=== PATIENT | male | born 1955 | race Caucasian/White ===

== ENCOUNTER 2021-07-01 13:23 | Emergency (ER) | payer BC ==
[~2021-07-01] VITALS: Ht 172.7 cm; Wt 131.0 kg
[~2021-07-01 13:23] MED LIST: HYDR-4353 PO
--- NOTE | 2021-07-01 15:10 | NUR ---
Dr Santana at triage to evaluate pt
[2021-07-01] MEDS ORDERED: iohexol 300mg/ml 100ml inj. ONE (15:55)
[2021-07-01 16:15] LABS: ALBUMIN 3.8 G/DL (3.4-5.0); ANION GAP 10 (8-16); BLOOD UREA NITROGEN 15 MG/DL (7-18); BUN/CREATININE RATIO 13.9 (5.4-32.0); CALCIUM 8.8 MG/DL (8.5-10.1); CHLORIDE 108 MMOL/L (99-107); CREATININE 1.08 MG/DL (0.60-1.10); GLUCOSE 119 MG/DL (70-104); POTASSIUM 4.5 MMOL/L (3.5-5.1); SODIUM 143 MMOL/L (135-145); TOTAL CARBON DIOXIDE 25.4 MMOL/L (24-32); eGFR 69 ML/MIN
[2021-07-01] MEDS ORDERED: ERYT1OIN6 RIGHTEYE (20:42)
[2021-07-01 21:04] VITALS: BP 187/108
[2021-07-02] MEDS ORDERED: MESSAGE TO NURSING PO NR (10:00)
== END 2021-07-01 21:06 | disposition home or self-care (01) ==
LOC: ER 13:24
DX: H11.421 Conjunctival edema, right eye (principal); E78.00 Pure hypercholesterolemia, unspecified; I10 Essential (primary) hypertension; E11.9 Type 2 diabetes mellitus without complications; Z88.5 Allergy status to narcotic agent; Z79.899 Other long term (current) drug therapy
CPT/HCPCS: 36415; 70482; 80048; 99285; Q9967

== ENCOUNTER 2021-08-14 01:07 | Emergency (ER) | payer BC ==
[~2021-08-14] VITALS: Ht 172.7 cm; Wt 118.7 kg
[2021-08-14 03:20] LABS: BASOPHILS % (AUTO) 0.1 % (0-1); EOSINOPHILS % (AUTO) 0.1 % (0-6); HEMATOCRIT 35.7 % (42.0-52.0); HEMOGLOBIN 11.9 g/dl (14.0-17.9); LYMPHOCYTES # (AUTO) 0.9 X10'3 (1.1-4.8); LYMPHOCYTES % (AUTO) 6.6 % (21-51); MEAN CORPUSCULAR HEMOGLOBIN 29.5 PG (27.0-31.0); MEAN CORPUSCULAR HGB CONC 33.3 g/dL (33.0-36.5); MEAN CORPUSCULAR VOLUME 88.6 FL (78-98); MEAN PLATELET VOLUME 7.2 FL (7.4-10.4); MONOCYTES # (AUTO) 1.2 X10'3 (0-0.9); MONOCYTES % (AUTO) 8.7 % (2-12); NEUTROPHILS # (AUTO) 11.9 X10'3 (1.8-7.7); NEUTROPHILS % (AUTO) 84.5 % (42-75); PLATELET COUNT 325 X10'3 (140-440); RED BLOOD COUNT 4.03 X10'6 (4.70-6.10); RED CELL DISTRIBUTION WIDTH 13.6 % (11.5-14.5); WHITE BLOOD COUNT 14.1 X10'3 (4.5-11.0)
[2021-08-14 03:29] LABS: ALBUMIN 2.5 G/DL (3.4-5.0); ANION GAP 12 (8-16); BLOOD UREA NITROGEN 16 MG/DL (7-18); BUN/CREATININE RATIO 12.2 (5.4-32.0); CALCIUM 9.1 MG/DL (8.5-10.1); CHLORIDE 96 MMOL/L (99-107); CREATININE 1.31 MG/DL (0.60-1.10); GLUCOSE 261 MG/DL (70-104); POTASSIUM 4.7 MMOL/L (3.5-5.1); SODIUM 131 MMOL/L (135-145); TOTAL CARBON DIOXIDE 23.5 MMOL/L (24-32); eGFR 55 ML/MIN
[2021-08-14] MEDS ORDERED: vancomycin/NS 1 GM ADD-VANTAGE 250 ML IV STA (04:00)
[2021-08-14] MEDS ORDERED: cefepime 2g/NS 100ml ADVANTAGE 100 ML IV STA (04:00)
--- NOTE | 2021-08-14 05:48 | NUR ---
CONSULTED WITH PHARMACIST REGARDING PT CONCERN REGARDING VANCOMYACIN REACTION IN THE PAST. PHARMACIST STATES NO CONCERN REGARDING REACTION OF HEARING LOSS WITH A DOSE THIS SIZE.
[2021-08-14 07:46] LABS: D-DIMER 6.57 MG/L FEU (0-0.50)
[2021-08-14 08:36] VITALS: BP 160/94
[2021-08-14] MEDS ORDERED: HYDROcodone/acetaminophen 10/325mg tab PO ONE (09:50)
[2021-08-15] MEDS ORDERED: CEPH-585 PO (19:48)
[2021-08-15] MEDS ORDERED: AMOX-580 PO (19:48)
[2021-08-15] MEDS ORDERED: LISI20TA28 PO (19:48)
[2021-08-15] MEDS ORDERED: METF-900 PO (19:48)
[2021-08-15] MEDS ORDERED: ROSU5TAB12 PO (19:48)
[2021-08-15] MEDS ORDERED: ASPI-1265 PO (19:51)
[2021-08-15] MEDS ORDERED: LOP25T PO (19:51)
[2021-08-15] MEDS ORDERED: LACT1CAP65 PO (19:52)
[2021-08-16 15:58] LABS: ATYPICAL PANCA <1:20 titer (Neg:<1:20); CYTOPLASMIC (C-ANCA) <1:20 titer (Neg:<1:20); PERINUCLEAR (P-ANCA) <1:20 titer (Neg:<1:20)
== END 2021-08-14 10:04 | disposition home or self-care (01) ==
LOC: ER 01:07
DX: I77.6 Arteritis, unspecified (principal); Z20.822 Contact with and (suspected) exposure to COVID-19; E11.9 Type 2 diabetes mellitus without complications; E78.00 Pure hypercholesterolemia, unspecified; I10 Essential (primary) hypertension; G89.29 Other chronic pain; Z72.89 Other problems related to lifestyle; Z79.2 Long term (current) use of antibiotics; Z88.5 Allergy status to narcotic agent; Z79.899 Other long term (current) drug therapy
CPT/HCPCS: 36415; 71250; 80048; 82948; 83605; 85025; 85379; 86256; 87040; 87635; 96365; 96366; 96368; 99285; C9803; J0692; J3370; 87077

== ENCOUNTER 2021-08-15 17:08 | Inpatient (IN) | payer BC ==
[~2021-08-15] VITALS: Ht 172.7 cm; Wt 134.6 kg
[2021-08-15 18:37] LABS: BASOPHILS % (AUTO) 0.2 % (0-1); EOSINOPHILS % (AUTO) 0 % (0-6); HEMATOCRIT 35.5 % (42.0-52.0); HEMOGLOBIN 11.9 g/dl (14.0-17.9); LYMPHOCYTES % (AUTO) 6.4 % (21-51); MEAN CORPUSCULAR HEMOGLOBIN 29.4 PG (27.0-31.0); MEAN CORPUSCULAR HGB CONC 33.5 g/dL (33.0-36.5); MEAN CORPUSCULAR VOLUME 87.8 FL (78-98); MEAN PLATELET VOLUME 7.5 FL (7.4-10.4); MONOCYTES # (AUTO) 1.4 X10'3 (0-0.9); MONOCYTES % (AUTO) 9.4 % (2-12); NEUTROPHILS # (AUTO) 12.6 X10'3 (1.8-7.7); PLATELET COUNT 379 X10'3 (140-440); RED BLOOD COUNT 4.04 X10'6 (4.70-6.10); RED CELL DISTRIBUTION WIDTH 13.8 % (11.5-14.5)
[2021-08-15 18:43] LABS: PARTIAL THROMBOPLASTIN TIME 33 SECONDS (22-32)
[2021-08-15 18:45] LABS: ALANINE AMINOTRANSFERASE 28 U/L (12-78); ALBUMIN 2.1 G/DL (3.4-5.0); ALBUMIN/GLOBULIN RATIO 0.4 (1.1-1.5); ALKALINE PHOSPHATASE 84 IU/L (46-116); ANION GAP 13 (8-16); ASPARTATE AMINO TRANSFERASE 32 U/L (10-37); BILIRUBIN,TOTAL 0.7 MG/DL (0.1-1.0); BLOOD UREA NITROGEN 36 MG/DL (7-18); BUN/CREATININE RATIO 25.9 (5.4-32.0); CALCIUM 8.8 MG/DL (8.5-10.1); CHLORIDE 95 MMOL/L (99-107); CREATININE 1.39 MG/DL (0.60-1.10); GLUCOSE 246 MG/DL (70-104); POTASSIUM 4.3 MMOL/L (3.5-5.1); SODIUM 128 MMOL/L (135-145); TOTAL CARBON DIOXIDE 20.5 MMOL/L (24-32); TOTAL PROTEIN 7.1 G/DL (6.4-8.2); eGFR 51 ML/MIN
[2021-08-15 18:54] LABS: MAGNESIUM 2.1 MG/DL (1.5-2.4); TROPONIN I < 0.04 NG/ML (0.0-0.05)
[2021-08-15] MEDS ORDERED: diltiazem-D5W 125mg/125ml 125 ML IV SCH (19:00)
[2021-08-15] MEDS ORDERED: diltiazem 5mg/ml 5ml inj. IV ONE (19:00)
[2021-08-15] MEDS ORDERED: diltiazem-NS 100mg/100ml 100 ML IV SCH (19:00)
[2021-08-15] MEDS ORDERED: normal saline 1000ML IV soln IVB ONE (19:05)
[2021-08-15] MEDS: diltiazem 5mg/ml 5ml inj. IV ONE ×2 (19:07→19:16)
[2021-08-15] MEDS: metoprolol tartrate 1mg/ml inj IV SCH ×4 (19:23→20:14)
[2021-08-15] MEDS ORDERED: LISI20TA28 PO (19:48)
[2021-08-15] MEDS ORDERED: ROSU5TAB12 PO (19:48)
[2021-08-15] MEDS ORDERED: CEPH-585 PO (19:48)
[2021-08-15] MEDS ORDERED: METF-900 PO (19:48)
[2021-08-15] MEDS ORDERED: AMOX-580 PO (19:48)
[2021-08-15] MEDS ORDERED: ASPI-1265 PO (19:51)
[2021-08-15] MEDS ORDERED: LOP25T PO (19:51)
[2021-08-15] MEDS ORDERED: LACT1CAP65 PO (19:52)
[2021-08-15] MEDS ORDERED: iohexol 350MG/ML 100ml bottle IV ONE (20:12)
[2021-08-15] MEDS ORDERED: amiodarone 150mg/dext, iso-os 100 ML IV ONE (20:15)
[2021-08-15] MEDS ORDERED: magnesium hydroxide 30ml (MOM) UD suspension PO PRN (21:10)
[2021-08-15] MEDS ORDERED: ondansetron/PF 4mg/2ml inj IV PRN (21:10)
[2021-08-15] MEDS ORDERED: LIDOcaine 2% 10ml TOPICAL JELLY (Urojet) TP ONE (21:10)
[2021-08-15] MEDS ORDERED: acetaminophen 325mg tablet PO PRN (21:10)
[2021-08-15] MEDS ORDERED: potassium Cl 20 mEq SR tablet PO PRN ×2 (21:10)
[2021-08-15] MEDS ORDERED: amiodarone/D5 360MG/200ML BAG 200 ML IV SCH (22:00)
[2021-08-15] MEDS: K, MAG and/or Phos replacement - Verify level? MC SCH (22:19)
[2021-08-16 01:05] LABS: BASOPHILS % (AUTO) 0.1 % (0-1); EOSINOPHILS % (AUTO) 0.1 % (0-6); HEMATOCRIT 32.6 % (42.0-52.0); HEMOGLOBIN 10.9 g/dl (14.0-17.9); LYMPHOCYTES # (AUTO) 0.8 X10'3 (1.1-4.8); LYMPHOCYTES % (AUTO) 5.2 % (21-51); MEAN CORPUSCULAR HEMOGLOBIN 29.3 PG (27.0-31.0); MEAN CORPUSCULAR HGB CONC 33.5 g/dL (33.0-36.5); MEAN CORPUSCULAR VOLUME 87.5 FL (78-98); MEAN PLATELET VOLUME 7.3 FL (7.4-10.4); MONOCYTES # (AUTO) 1.4 X10'3 (0-0.9); MONOCYTES % (AUTO) 8.9 % (2-12); NEUTROPHILS # (AUTO) 13.2 X10'3 (1.8-7.7); NEUTROPHILS % (AUTO) 85.7 % (42-75); PLATELET COUNT 379 X10'3 (140-440); RED BLOOD COUNT 3.73 X10'6 (4.70-6.10); RED CELL DISTRIBUTION WIDTH 13.9 % (11.5-14.5); WHITE BLOOD COUNT 15.4 X10'3 (4.5-11.0)
[2021-08-16] MEDS: diltiazem-NS 100mg/100ml 100 ML IV SCH ×2 (01:05→06:18)
[2021-08-16 01:20] LABS: ALBUMIN 1.9 G/DL (3.4-5.0); ANION GAP 12 (8-16); BLOOD UREA NITROGEN 36 MG/DL (7-18); BUN/CREATININE RATIO 26.7 (5.4-32.0); CALCIUM 8.5 MG/DL (8.5-10.1); CHLORIDE 97 MMOL/L (99-107); CREATININE 1.35 MG/DL (0.60-1.10); GLUCOSE 313 MG/DL (70-104); MAGNESIUM 2.1 MG/DL (1.5-2.4); PHOSPHORUS 2.9 MG/DL (2.3-4.5); POTASSIUM 4.4 MMOL/L (3.5-5.1); SODIUM 131 MMOL/L (135-145); TOTAL CARBON DIOXIDE 21.8 MMOL/L (24-32); eGFR 53 ML/MIN
[2021-08-16] MEDS: heparin, porcine 5000 units/ml vial SQ SCH ×3 (01:33→20:14)
[2021-08-16] MEDS: acetaminophen 325mg tablet PO PRN ×2 (01:39→20:26)
--- NOTE | 2021-08-16 03:44 | NUR ---
CALLED DR CALDERON RE PT HR STILL 140S-160S A FLUTTER. PER DR, CONTINUE WITH AMI AND OK TO DROP TO 0.5MG AFTER THE 6 HRS ONF 1MG. RECIEVED ORDER FOR LOPRESSOR 5MG IV ONCE ALSO RECIEVED ORDER FOR SLIDING SCALE INSULIN FOR LAST BG OF 313.
[2021-08-16] MEDS ORDERED: glucagon, human recombinant 1mg kit SUBCUT PRN (04:45)
[2021-08-16] MEDS ORDERED: dextrose 50%-water 50ml dispensing syringe IV PRN ×2 (04:45)
[2021-08-16] MEDS ORDERED: metoprolol tartrate 1mg/ml inj IV ONE (04:45)
[2021-08-16] MEDS ORDERED: MESSAGE TO PHARMACY PO ONE (04:45)
[2021-08-16] MEDS ORDERED: dextrose ORAL solution 15 GM/59 ML bottle PO PRN ×2 (04:45)
[2021-08-16] MEDS: amiodarone/D5 360MG/200ML BAG 200 ML IV SCH ×6 (04:51→22:27)
[2021-08-16 04:59] LABS: HEMOGLOBIN A1C 7.3 % (4.5-6.2)
--- NOTE | 2021-08-16 06:50 | NUR ---
PATIENT'S HR 86 SINUS RHYTHM.PATIENT ON AMNIODARONE 0.5MG/MIN AND CARDIZEM 20MG/HOUR.
[2021-08-16] MEDS: K, MAG and/or Phos replacement - Verify level? MC SCH (08:00)
--- NOTE | 2021-08-16 08:38 | NUR ---
maxipime and vancomycin bit available at this time,.
--- NOTE | 2021-08-16 08:44 | NUR ---
Dr. Shannon at bedside, ordered as follows: start on Renal diet, lasix 40mg piv stat, stop diltiazem drip, down grade patient to pcu, venous doppler to BLE ro dvt. Order noted and carried out.
--- NOTE | 2021-08-16 08:44 | NUR ---
per Dr. Shannon keep amniodarone drip rate as is.
[2021-08-16] MEDS ORDERED: furosemide 10 MG/1 ML 10ml inj IV STA (08:46)
--- NOTE | 2021-08-16 09:00 | NUR ---
Shannon a request to dietary for a renal diet breakfast tray 09 Signed: 08/16/21 at 0900 by Kristine MARIE
--- NOTE | 2021-08-16 09:11 | NUR ---
annmarie gimenez dc'lucita at this time, ordered to re start if needed.
[2021-08-16] MEDS: cefepime 1GM/NS ADD-VANTAGE 100 ML IV SCH ×2 (09:18→16:32)
--- NOTE | 2021-08-16 09:24 | NUR ---
PAGED VASCULAR FOR ULTRASOUND TO BLE.
[2021-08-16 09:46] LABS: RHEUM FACTOR QUAL REFLEX TITER NEGATIVE (Neg)
--- NOTE | 2021-08-16 09:55 | NUR ---
electronic technician at bedside.
--- NOTE | 2021-08-16 10:50 | NUR ---
have assumed care of pt from Nazia CHAPA, pt has had vascular study and finished breakfast, emptied urinal of 1200ml of clear yellow urine, pt is hard of hearing, reads lips and writes to communicate, pt is GCS 15 alert and oriented x3, resp even and unlabored, on room air, skin p/w/d, sinus rhythm on monitor, no ectopy, amiodarone gtt at 0.5mg/min infusing via pump to left AC IV, IV site is patent and clear, pt has been downgraded to PCU, waiting for bed assignment
--- NOTE | 2021-08-16 10:51 | NUR ---
No change with amniodarone rate per Dr Shannon.
[2021-08-16] MEDS: insulin Lispro (HumaLOG) vial - multi-dose SQ SCH ×3 (11:03→20:10)
[2021-08-16] MEDS ORDERED: APIX5TAB3 PO (11:47)
--- NOTE | 2021-08-16 12:06 | NUR ---
FAMILY AT BEDSIDE, AWARE OF PLAN TO ADMIT TO HOSPITAL, NO BEDS AVAILABLE AT THIS TIME, GAVE PT ICE CHIPS, ROSALINO WELL NO N/V
[2021-08-16 13:06] VITALS: BP 143/72
--- NOTE | 2021-08-16 13:30 | NUR ---
FAMILY AT BEDSIDE, PT SITTING UP EATING LUNCH, CHECKED VITALS AND IV LINES, DC'D FIELD LINE, OTHER LINES INTACT
--- NOTE | 2021-08-16 16:35 | NUR ---
PT CONTINUES TO REST QUIETLY ON GURNEY, RESP EVEN AND UNLABORED, FAMILY WENT HOME, CAROL HERCULES, DAUGHTER, [phone]
--- NOTE | 2021-08-16 17:00 | NUR ---
pt to CT on monitor with RN
--- NOTE | 2021-08-16 18:31 | NUR ---
copier field service technician at bedside
--- NOTE | 2021-08-16 18:43 | NUR ---
report to Bessie CHAPA
--- NOTE | 2021-08-16 18:51 | NUR ---
Patient in room ED 9. I have received report from ZAKIYA CHAPA and had the opportunity to ask questions and assume patient care.
[2021-08-16 19:00] VITALS: BP 152/73
[2021-08-16 20:00] VITALS: BP 154/68
[2021-08-16] MEDS: prednisoLONE acetate 1% ophth susp 5ml EACHEYE SCH (20:00)
[2021-08-16] MEDS: vancomycin/NS 1 GM ADD-VANTAGE 250 ML IV SCH (20:15)
[2021-08-16] MEDS: lactobacillus rhamnosus 10,000 MMU CELLS/CAPSULE PO SCH (20:16)
[2021-08-16] MEDS: predniSONE 20 mg tablet PO SCH (20:16)
[2021-08-16 21:00] VITALS: BP 166/94
--- NOTE | 2021-08-16 21:57 | NUR ---
3018B-AMAURY WILHELM-HR INCREASED FROM 90'S TO 140'S, CONVERTED FROM SR TO AFIB AT 2130-ON DILT gtt AT 0.5. MAY WE INCREASE? EVERETT [id number] Addendum: 08/16/21 at 2225 by Everett Palma RN CORRECTION-AMIODARONE gtt, aware, ordered 180 mg cardizem PO x1 now for HR 130's-140's/afib. NIXON CHAPA
[2021-08-16 22:00] VITALS: BP 163/71
[2021-08-16] MEDS: insulin glargine (Lantus) pen - multi-dose SQ SCH (22:19)
[2021-08-16] MEDS ORDERED: diltiazem CD 180mg cap (once-daily) PO ONE (22:20)
--- NOTE | 2021-08-16 23:44 | NUR ---
3018B-AMAURY WILHELM-HR INCREASED FROM 90'S TO 140'S, CONVERTED FROM SR TO AFIB AT 2130-ON DILT gtt AT 0.5. MAY WE INCREASE? EVERETT [id number]
--- NOTE | 2021-08-16 23:45 | NUR ---
REQUESTED LASIX FOR PATIENT-EDEMA 3 +. NIXON CHAPA
[2021-08-17] VITALS (8 sets, daily range): BP systolic 145–166; BP diastolic 71–90
[2021-08-17] MEDS: heparin, porcine 5000 units/ml vial SQ SCH ×2 (00:04→08:57)
[2021-08-17] MEDS: cefepime 1GM/NS ADD-VANTAGE 100 ML IV SCH ×4 (00:25→23:47)
--- NOTE | 2021-08-17 06:35 | NUR ---
Problems reprioritized. Patient report given, questions answered & plan of care reviewed with QUIN CHAPA.
[2021-08-17] MEDS: K, MAG and/or Phos replacement - Verify level? MC SCH (08:00)
[2021-08-17] MEDS: prednisoLONE acetate 1% ophth susp 5ml EACHEYE SCH ×3 (08:00→19:26)
[2021-08-17 08:21] LABS: BASOPHILS % (AUTO) 0.1 % (0-1); EOSINOPHILS % (AUTO) 0 % (0-6); HEMATOCRIT 35.5 % (42.0-52.0); HEMOGLOBIN 11.4 g/dl (14.0-17.9); LYMPHOCYTES # (AUTO) 0.6 X10'3 (1.1-4.8); LYMPHOCYTES % (AUTO) 3.2 % (21-51); MEAN CORPUSCULAR HGB CONC 32.2 g/dL (33.0-36.5); MEAN CORPUSCULAR VOLUME 89.9 FL (78-98); MEAN PLATELET VOLUME 7.6 FL (7.4-10.4); MONOCYTES # (AUTO) 1.1 X10'3 (0-0.9); MONOCYTES % (AUTO) 6.1 % (2-12); NEUTROPHILS # (AUTO) 15.8 X10'3 (1.8-7.7); NEUTROPHILS % (AUTO) 90.6 % (42-75); PLATELET COUNT 379 X10'3 (140-440); RED BLOOD COUNT 3.94 X10'6 (4.70-6.10); RED CELL DISTRIBUTION WIDTH 14.5 % (11.5-14.5); WHITE BLOOD COUNT 17.5 X10'3 (4.5-11.0)
[2021-08-17 08:47] LABS: ALBUMIN 1.9 G/DL (3.4-5.0); ANION GAP 16 (8-16); BLOOD UREA NITROGEN 32 MG/DL (7-18); BUN/CREATININE RATIO 28.1 (5.4-32.0); CALCIUM 9.1 MG/DL (8.5-10.1); CHLORIDE 99 MMOL/L (99-107); CREATININE 1.14 MG/DL (0.60-1.10); GLUCOSE 356 MG/DL (70-104); MAGNESIUM 2.7 MG/DL (1.5-2.4); PHOSPHORUS 3.6 MG/DL (2.3-4.5); POTASSIUM 4.5 MMOL/L (3.5-5.1); SODIUM 137 MMOL/L (135-145); TOTAL CARBON DIOXIDE 21.9 MMOL/L (24-32); eGFR 65 ML/MIN
[2021-08-17] MEDS: vancomycin/NS 1 GM ADD-VANTAGE 250 ML IV SCH ×2 (08:56→19:24)
[2021-08-17] MEDS: lactobacillus rhamnosus 10,000 MMU CELLS/CAPSULE PO SCH ×2 (08:57→19:24)
[2021-08-17] MEDS: predniSONE 20 mg tablet PO SCH (08:57)
[2021-08-17] MEDS ORDERED: FLU VACC QS2021-22(6MOS UP)/PF 60 MCG/0.5 ML SYRINGE IM ONE (09:00)
[2021-08-17] MEDS: insulin Lispro (HumaLOG) vial - multi-dose SQ SCH ×3 (09:01→19:23)
[2021-08-17] MEDS ORDERED: polyvinyl alcohol ophthalmic drops 15ml bottle EACHEYE PRN (10:25)
--- NOTE | 2021-08-17 14:29 | NUR ---
DM consult: Pt with T2DM, well controlled with A1c 7.3%. Written DM education with RD contact information placed in patient's chart. Will continue to follow. Addendum: 08/17/21 at [address] Amended: Links added.
[2021-08-17] MEDS ORDERED: ondansetron 4mg rapidly disintigrating tab PO PRN (14:45)
--- NOTE | 2021-08-17 15:28 | NUR ---
regarding abdominal distention PAGER ID: [phone] MESSAGE: room 3020, Maria L Arreola, patient is going down for MRI now, patient states abdomen being large and distended is not her baseline, should we order abdominal CT as well since she'll be downstairs? thank you, Danita CHAPA [phone]
[2021-08-17] MEDS: apixaban 5mg tablet PO SCH (19:24)
[2021-08-17] MEDS ORDERED: VANCOMYCIN LEVEL IV ONE (19:30)
--- NOTE | 2021-08-17 21:42 | NUR ---
3018B AMAURY FOY-CRITICAL KHUSHBOO 21.3 CALLED FROM LAB AT 5-. VANCO BAG ALREADY COMPLETED AT THAT TIME. ANY NEW ORDERS? EVERETT [id number]. THX
[2021-08-17] MEDS: insulin glargine (Lantus) pen - multi-dose SQ SCH (21:57)
[2021-08-18 02:00] VITALS: BP 181/76
[2021-08-18] MEDS: acetaminophen 325mg tablet PO PRN ×2 (02:55→23:10)
--- NOTE | 2021-08-18 03:00 | NUR ---
PAGER ID: [phone] MESSAGE: 3016B-Siddharth Gallegos-BLOOD PRESSURE >160'S SYSTOLLICALLYLAST 24 HRS, HAS HYPERTHYROID ISSUES-DIABETIC. NO PRN FOR SBP. PLEASE CALL [phone], THX
--- NOTE | 2021-08-18 04:24 | NUR ---
PAGER ID: [phone] MESSAGE: 3013B-Siddharth Gallegos-BLOOD PRESSURE >160'S SYSTOLLICALLYLAST 24 HRS, HAS HYPERTHYROID ISSUES-DIABETIC. NO PRN FOR SBP. PLEASE CALL [phone], THX HR NOW IN 180'S SYSTOLICALLY. AWAITING RESPONSE FROMHOSPITALIST. NIXON CHAPA
[2021-08-18] MEDS ORDERED: lisinopril 10 MG tablet PO ONE (04:50)
[2021-08-18 06:00] VITALS: BP 158/62
--- NOTE | 2021-08-18 06:25 | NUR ---
Patient in room PCU 3018. I have received report from eufemia suarez and had the opportunity to ask questions and assume patient care.
--- NOTE | 2021-08-18 06:43 | NUR ---
Problems reprioritized. Patient report given, questions answered & plan of care reviewed with CESIA CHAPA.
[2021-08-18 06:49] LABS: BASOPHILS % (AUTO) 0.1 % (0-1); EOSINOPHILS % (AUTO) 0.1 % (0-6); HEMATOCRIT 33.6 % (42.0-52.0); HEMOGLOBIN 10.9 g/dl (14.0-17.9); LYMPHOCYTES # (AUTO) 1.1 X10'3 (1.1-4.8); LYMPHOCYTES % (AUTO) 6.9 % (21-51); MEAN CORPUSCULAR HEMOGLOBIN 28.9 PG (27.0-31.0); MEAN CORPUSCULAR HGB CONC 32.4 g/dL (33.0-36.5); MEAN CORPUSCULAR VOLUME 89.3 FL (78-98); MEAN PLATELET VOLUME 7.5 FL (7.4-10.4); MONOCYTES % (AUTO) 6.8 % (2-12); NEUTROPHILS # (AUTO) 13.1 X10'3 (1.8-7.7); NEUTROPHILS % (AUTO) 86.1 % (42-75); PLATELET COUNT 440 X10'3 (140-440); RED BLOOD COUNT 3.76 X10'6 (4.70-6.10); RED CELL DISTRIBUTION WIDTH 14.4 % (11.5-14.5); WHITE BLOOD COUNT 15.2 X10'3 (4.5-11.0)
[2021-08-18 07:33] LABS: ALBUMIN 1.8 G/DL (3.4-5.0); ANION GAP 12 (8-16); BLOOD UREA NITROGEN 34 MG/DL (7-18); BUN/CREATININE RATIO 30.9 (5.4-32.0); CALCIUM 8.8 MG/DL (8.5-10.1); CHLORIDE 100 MMOL/L (99-107); GLUCOSE 210 MG/DL (70-104); MAGNESIUM 2.2 MG/DL (1.5-2.4); PHOSPHORUS 3.4 MG/DL (2.3-4.5); SODIUM 137 MMOL/L (135-145); TOTAL CARBON DIOXIDE 24.9 MMOL/L (24-32); eGFR 67 ML/MIN
[2021-08-18] MEDS ORDERED: non-formulary drug (Lactobacillus Acidophilus (Probiotic) 1 EACH) PO SCH (08:00)
[2021-08-18] MEDS: predniSONE 20 mg tablet PO SCH (08:09)
[2021-08-18] MEDS: prednisoLONE acetate 1% ophth susp 5ml EACHEYE SCH ×2 (08:09→19:13)
[2021-08-18] MEDS: aspirin 81mg tab.chew PO SCH (08:09)
[2021-08-18] MEDS: cefepime 1GM/NS ADD-VANTAGE 100 ML IV SCH ×2 (08:09→16:52)
[2021-08-18] MEDS: atorvastatin 20mg tablet PO SCH (08:10)
[2021-08-18] MEDS: diltiazem CD 180mg cap (once-daily) PO SCH (08:10)
[2021-08-18] MEDS: lactobacillus rhamnosus 10,000 MMU CELLS/CAPSULE PO SCH ×2 (08:10→19:13)
[2021-08-18] MEDS: lisinopril 20mg tablet PO SCH (08:10)
[2021-08-18] MEDS: apixaban 5mg tablet PO SCH ×2 (08:10→19:13)
[2021-08-18] MEDS: K, MAG and/or Phos replacement - Verify level? MC SCH (08:20)
[2021-08-18] MEDS: vancomycin inj. 750 MG in normal saline 250ml IV soln 250 ML IV SCH ×2 (09:00→21:32)
[2021-08-18 09:23] LABS: PLATELET ESTIMATE NORMAL; POLYCHROMASIA 1+; TOTAL CELLS COUNTED 100
[2021-08-18] MEDS: insulin Lispro (HumaLOG) vial - multi-dose SQ SCH ×3 (10:10→19:12)
[2021-08-18 11:00] VITALS: BP 166/75
[2021-08-18] MEDS ORDERED: hydrALAZINE 20mg/ml inj. IV PRN (12:20)
[2021-08-18] MEDS: fluticasone nasal spray 16GM bottle NS SCH (12:30)
[2021-08-18] MEDS ORDERED: salt irrigation nasal spray 45 ML SPRAY NS PRN (12:30)
[2021-08-18] MEDS ORDERED: temazepam 15mg capsule PO PRN (12:30)
[2021-08-18 15:00] VITALS: BP 177/84
[2021-08-18 18:00] VITALS: BP 149/80
--- NOTE | 2021-08-18 18:23 | NUR ---
Problems reprioritized. Patient report given, questions answered & plan of care reviewed with EDUARD MCALLISTER.
[2021-08-18] MEDS: insulin glargine (Lantus) pen - multi-dose SQ SCH (21:22)
[2021-08-18 22:00] VITALS: BP_SYST 130; BP_SYST 161; BP_DIAS 70; BP_DIAS 80
[2021-08-19] MEDS: cefepime 1GM/NS ADD-VANTAGE 100 ML IV SCH ×3 (00:08→15:55)
[2021-08-19 02:00] VITALS: BP_SYST 138; BP_SYST 153; BP_DIAS 73; BP_DIAS 95
[2021-08-19 06:00] VITALS: BP 143/99
[2021-08-19 07:11] LABS: ALBUMIN 1.8 G/DL (3.4-5.0); ANION GAP 13 (8-16); BLOOD UREA NITROGEN 28 MG/DL (7-18); BUN/CREATININE RATIO 28.6 (5.4-32.0); CALCIUM 8.6 MG/DL (8.5-10.1); CHLORIDE 100 MMOL/L (99-107); CREATININE 0.98 MG/DL (0.60-1.10); GLUCOSE 208 MG/DL (70-104); PHOSPHORUS 3.5 MG/DL (2.3-4.5); SODIUM 136 MMOL/L (135-145); TOTAL CARBON DIOXIDE 23.5 MMOL/L (24-32); eGFR 77 ML/MIN
[2021-08-19 07:13] LABS: BASOPHILS % (AUTO) 0.2 % (0-1); EOSINOPHILS % (AUTO) 0.2 % (0-6); HEMATOCRIT 34.7 % (42.0-52.0); HEMOGLOBIN 11.4 g/dl (14.0-17.9); LYMPHOCYTES # (AUTO) 1.2 X10'3 (1.1-4.8); LYMPHOCYTES % (AUTO) 6.9 % (21-51); MEAN CORPUSCULAR HEMOGLOBIN 29.1 PG (27.0-31.0); MEAN CORPUSCULAR HGB CONC 32.8 g/dL (33.0-36.5); MEAN CORPUSCULAR VOLUME 88.9 FL (78-98); MEAN PLATELET VOLUME 7.8 FL (7.4-10.4); MONOCYTES # (AUTO) 1.2 X10'3 (0-0.9); MONOCYTES % (AUTO) 6.9 % (2-12); NEUTROPHILS % (AUTO) 85.8 % (42-75); PLATELET COUNT 520 X10'3 (140-440); RED CELL DISTRIBUTION WIDTH 14.4 % (11.5-14.5); WHITE BLOOD COUNT 17.4 X10'3 (4.5-11.0)
[2021-08-19] MEDS: predniSONE 20 mg tablet PO SCH (07:20)
[2021-08-19] MEDS: prednisoLONE acetate 1% ophth susp 5ml EACHEYE SCH ×10 (07:20→23:00)
[2021-08-19] MEDS: atorvastatin 20mg tablet PO SCH (07:21)
[2021-08-19] MEDS: acetaminophen 325mg tablet PO PRN ×2 (07:21→22:14)
[2021-08-19] MEDS: lisinopril 20mg tablet PO SCH (07:21)
[2021-08-19] MEDS: diltiazem CD 180mg cap (once-daily) PO SCH (07:21)
[2021-08-19] MEDS: lactobacillus rhamnosus 10,000 MMU CELLS/CAPSULE PO SCH ×2 (07:21→19:53)
[2021-08-19] MEDS: aspirin 81mg tab.chew PO SCH (07:21)
[2021-08-19] MEDS: apixaban 5mg tablet PO SCH ×2 (07:21→19:53)
[2021-08-19] MEDS: fluticasone nasal spray 16GM bottle NS SCH (07:22)
[2021-08-19] MEDS: K, MAG and/or Phos replacement - Verify level? MC SCH (08:00)
[2021-08-19] MEDS: insulin Lispro (HumaLOG) vial - multi-dose SQ SCH ×3 (09:15→19:57)
[2021-08-19] MEDS ORDERED: FLU VACC QS2021-22(6MOS UP)/PF 60 MCG/0.5 ML SYRINGE IM ONE (10:00)
[2021-08-19] MEDS: vancomycin inj. 750 MG in normal saline 250ml IV soln 250 ML IV SCH ×2 (10:06→21:52)
[2021-08-19 11:00] VITALS: BP 141/77
[2021-08-19 11:45] LABS: PLATELET ESTIMATE INCREASED; TOTAL CELLS COUNTED 100
[2021-08-19 11:46] LABS: POLYCHROMASIA 1+
[2021-08-19 13:11] LABS: ATYPICAL PANCA <1:20 titer (Neg:<1:20); CYTOPLASMIC (C-ANCA) <1:20 titer (Neg:<1:20); PERINUCLEAR (P-ANCA) <1:20 titer (Neg:<1:20)
[2021-08-19] MEDS ORDERED: VANCOMYCIN LEVEL IV ONE (20:30)
[2021-08-19 22:00] VITALS: BP 144/57
[2021-08-19] MEDS: insulin glargine (Lantus) pen - multi-dose SQ SCH (22:12)
[2021-08-20] MEDS: prednisoLONE acetate 1% ophth susp 5ml EACHEYE SCH ×5 (01:00→08:55)
[2021-08-20 02:00] VITALS: BP 165/85
[2021-08-20] MEDS: cefepime 1GM/NS ADD-VANTAGE 100 ML IV SCH ×2 (02:15→08:51)
[2021-08-20 06:00] VITALS: BP 143/84
--- NOTE | 2021-08-20 06:45 | NUR ---
Problems reprioritized. Patient report given, questions answered & plan of care reviewed with EDUARD Orantes.
--- NOTE | 2021-08-20 06:51 | NUR ---
Patient in room PCU 3018. I have received report from Monae CHAPA and had the opportunity to ask questions and assume patient care.
[2021-08-20 07:14] LABS: BASOPHILS # (AUTO) 0.1 X10'3 (0-0.2); BASOPHILS % (AUTO) 0.3 % (0-1); EOSINOPHILS % (AUTO) 0.1 % (0-6); HEMATOCRIT 37.7 % (42.0-52.0); LYMPHOCYTES # (AUTO) 1.3 X10'3 (1.1-4.8); LYMPHOCYTES % (AUTO) 6.3 % (21-51); MEAN CORPUSCULAR HEMOGLOBIN 28.7 PG (27.0-31.0); MEAN CORPUSCULAR HGB CONC 31.8 g/dL (33.0-36.5); MEAN CORPUSCULAR VOLUME 90.2 FL (78-98); MEAN PLATELET VOLUME 7.4 FL (7.4-10.4); MONOCYTES # (AUTO) 1.2 X10'3 (0-0.9); MONOCYTES % (AUTO) 6.1 % (2-12); NEUTROPHILS # (AUTO) 17.4 X10'3 (1.8-7.7); NEUTROPHILS % (AUTO) 87.2 % (42-75); PLATELET COUNT 481 X10'3 (140-440); RED BLOOD COUNT 4.18 X10'6 (4.70-6.10); RED CELL DISTRIBUTION WIDTH 14.3 % (11.5-14.5)
[2021-08-20 07:27] LABS: ALBUMIN 1.8 G/DL (3.4-5.0); ANION GAP 12 (8-16); BLOOD UREA NITROGEN 23 MG/DL (7-18); BUN/CREATININE RATIO 26.7 (5.4-32.0); CALCIUM 8.4 MG/DL (8.5-10.1); CHLORIDE 99 MMOL/L (99-107); CREATININE 0.86 MG/DL (0.60-1.10); GLUCOSE 186 MG/DL (70-104); MAGNESIUM 1.9 MG/DL (1.5-2.4); PHOSPHORUS 3.2 MG/DL (2.3-4.5); POTASSIUM 4.2 MMOL/L (3.5-5.1); SODIUM 136 MMOL/L (135-145); TOTAL CARBON DIOXIDE 24.6 MMOL/L (24-32); eGFR 90 ML/MIN
[2021-08-20] MEDS: K, MAG and/or Phos replacement - Verify level? MC SCH (08:00)
[2021-08-20] MEDS: aspirin 81mg tab.chew PO SCH (08:49)
[2021-08-20] MEDS: predniSONE 20 mg tablet PO SCH (08:50)
[2021-08-20] MEDS: atorvastatin 20mg tablet PO SCH (08:50)
[2021-08-20] MEDS: diltiazem CD 180mg cap (once-daily) PO SCH (08:50)
[2021-08-20 08:51] VITALS: BP_SYST 174
[2021-08-20] MEDS: lisinopril 20mg tablet PO SCH (08:51)
[2021-08-20] MEDS: apixaban 5mg tablet PO SCH (08:51)
[2021-08-20] MEDS: vancomycin inj. 750 MG in normal saline 250ml IV soln 250 ML IV SCH (08:52)
[2021-08-20] MEDS: fluticasone nasal spray 16GM bottle NS SCH (08:52)
[2021-08-20] MEDS: lactobacillus rhamnosus 10,000 MMU CELLS/CAPSULE PO SCH (08:57)
[2021-08-20] MEDS: insulin Lispro (HumaLOG) vial - multi-dose SQ SCH (09:05)
[2021-08-20 09:22] LABS: GIANT PLATELET FEW; LARGE PLATELETS FEW; PLATELET ESTIMATE INCREASED
[2021-08-20] MEDS ORDERED: prednisoLONE acetate 1% ophth susp 5ml EACHEYE SCH (11:00)
[2021-08-20] MEDS ORDERED: PREDNISOLONE EACHEYE (11:26)
[2021-08-20] MEDS ORDERED: DILT180C66 PO (11:26)
[2021-08-20] MEDS ORDERED: PRED20TA PO (11:26)
--- NOTE | 2021-08-20 12:04 | NUR ---
Initial: Pt admitted w/ chest pain and SOB per EMR. Pt able to eat moderately well, avg 68% x 9 meals on Renal/Heart Healthy/[facility] diet. D/w RN recommendation to d/c Renal and Heart Healthy if MD agreeable as pt does not have noted hx of renal issues or dyslipidemia. LBM 08/18. Will continue to monitor. Recs: 1. Continue CCHO diet, remove Renal and Heart Healthy if MD agreeable 2. Bowel care per rx 3. Weekly wts Addendum: 08/20/21 at [address] Amended: Links added.
--- NOTE | 2021-08-20 13:30 | NUR ---
Patient in stable condition at discharge. IV, Isaacs and telemetry were discontinued. Patient was taken out of unit with a wheelchair at 1310 . Patient left hospital with daughter with a personal car.
== END 2021-08-20 13:10 | disposition home health service (06) | DRG 308 ==
LOC: ER 17:09 → ED HOLD 21:16 → PCU 3S 08-16 19:05
PROVIDERS: ADMIT Internal Medicine Pulmonary Disease; ATTEND Internal Medicine Pulmonary Disease
PROC: B32T1ZZ Computerized Tomography (CT Scan) of Left Pulmonary Artery using Low Osmolar Contrast (ICD-10-PCS; 2021-08-15)
PROC: B3201ZZ Computerized Tomography (CT Scan) of Thoracic Aorta using Low Osmolar Contrast (ICD-10-PCS; 2021-08-15)
PROC: B32S1ZZ Computerized Tomography (CT Scan) of Right Pulmonary Artery using Low Osmolar Contrast (ICD-10-PCS; 2021-08-15)
PROC: 3E02340 Introduction of Influenza Vaccine into Muscle, Percutaneous Approach (ICD-10-PCS; principal; 2021-08-19)
DX: I47.1 Supraventricular tachycardia (principal); N17.0 Acute kidney failure with tubular necrosis; E87.1 Hypo-osmolality and hyponatremia; M31.30 Wegener's granulomatosis without renal involvement; I48.92 Unspecified atrial flutter; E11.9 Type 2 diabetes mellitus without complications; E78.00 Pure hypercholesterolemia, unspecified; E05.90 Thyrotoxicosis, unspecified without thyrotoxic crisis or storm; G89.29 Other chronic pain; R21 Rash and other nonspecific skin eruption; H57.89 Other specified disorders of eye and adnexa; E86.0 Dehydration; H11.423 Conjunctival edema, bilateral; I10 Essential (primary) hypertension; Z79.01 Long term (current) use of anticoagulants; Z79.84 Long term (current) use of oral hypoglycemic drugs; Z79.899 Other long term (current) drug therapy; Z23 Encounter for immunization; Z88.5 Allergy status to narcotic agent; Z79.82 Long term (current) use of aspirin
CPT/HCPCS: 36415; 70450; 71045; 71275; 80048; 80053; 80202; 82948; 83036; 83605; 83735; 83880; 84100; 84145; 84439; 84443; 84480; 84482; 84484; 85007; 85008; 85025; 85610; 85651; 85730; 86038; 86256; 86430; 87040; 87081; 93005; 93306; 93970; 96361; 96374; 97116; 97162; 97530; 99291; G0378; J0360; J0692; J1644; J1815; J1940; J3370; J3490; J7030; J7050; J7512; Q9967

== ENCOUNTER 2021-08-29 14:19 | Emergency (ER) | payer BC ==
[~2021-08-29] VITALS: Ht 172.7 cm; Wt 113.6 kg
[~2021-08-29 14:19] MED LIST changes: +APIX5TAB3 PO; +ASPI-1265 PO; +DILT180C66 PO; -HYDR-4353 PO; +LACT1CAP65 PO; +LIDOcaine 2% 5ml jelly ONE; +LISI20TA28 PO; +METF-900 PO; +PRED20TA PO; +PREDNISOLONE EACHEYE; +ROSU5TAB12 PO
[2021-08-29 14:48] LABS: BASOPHILS # (AUTO) 0.1 X10'3 (0-0.2); BASOPHILS % (AUTO) 0.3 % (0-1); EOSINOPHILS % (AUTO) 0 % (0-6); HEMATOCRIT 31.9 % (42.0-52.0); HEMOGLOBIN 10.4 g/dl (14.0-17.9); LYMPHOCYTES # (AUTO) 0.5 X10'3 (1.1-4.8); MEAN CORPUSCULAR HGB CONC 32.7 g/dL (33.0-36.5); MEAN CORPUSCULAR VOLUME 85.6 FL (78-98); MEAN PLATELET VOLUME 6.8 FL (7.4-10.4); MONOCYTES # (AUTO) 0.9 X10'3 (0-0.9); NEUTROPHILS # (AUTO) 21.6 X10'3 (1.8-7.7); NEUTROPHILS % (AUTO) 93.7 % (42-75); PLATELET COUNT 579 X10'3 (140-440); RED BLOOD COUNT 3.73 X10'6 (4.70-6.10); RED CELL DISTRIBUTION WIDTH 14.7 % (11.5-14.5); WHITE BLOOD COUNT 23.1 X10'3 (4.5-11.0)
[2021-08-29 15:01] LABS: PARTIAL THROMBOPLASTIN TIME 35 SECONDS (22-32)
[2021-08-29 15:02] LABS: ALANINE AMINOTRANSFERASE 73 U/L (12-78); ALBUMIN 1.6 G/DL (3.4-5.0); ALBUMIN/GLOBULIN RATIO 0.3 (1.1-1.5); ANION GAP 11 (8-16); ASPARTATE AMINO TRANSFERASE 38 U/L (10-37); BILIRUBIN,TOTAL 0.9 MG/DL (0.1-1.0); BLOOD UREA NITROGEN 22 MG/DL (7-18); BUN/CREATININE RATIO 23.4 (5.4-32.0); CALCIUM 8.4 MG/DL (8.5-10.1); CHLORIDE 94 MMOL/L (99-107); CREATININE 0.94 MG/DL (0.60-1.10); GLUCOSE 371 MG/DL (70-104); POTASSIUM 3.7 MMOL/L (3.5-5.1); SODIUM 132 MMOL/L (135-145); TOTAL CARBON DIOXIDE 26.6 MMOL/L (24-32); TOTAL PROTEIN 6.7 G/DL (6.4-8.2); eGFR 81 ML/MIN
[2021-08-29 15:03] LABS: ALKALINE PHOSPHATASE 106 IU/L (46-116)
[2021-08-29 15:06] LABS: TROPONIN I < 0.04 NG/ML (0.0-0.05)
[2021-08-29] MEDS ORDERED: PRED10TA23 PO (16:21)
[2021-08-29 16:22] LABS: D-DIMER 1.46 MG/L FEU (0-0.50)
[2021-08-29 16:41] LABS: C-REACTIVE PROTEIN 23.07 MG/DL (0.0-0.5); CREATINE KINASE 52 U/L (39-308); MAGNESIUM 1.8 MG/DL (1.5-2.4)
[2021-08-29 17:05] VITALS: BP 150/81
--- NOTE | 2021-08-29 18:47 | NUR ---
SBAR TO NIGHT NURSE ESHA TO RECHECK THE TEMP PT HAS TEMP WHEN TRIAGED ,PT HAS REDNESS TO LFT LOWER LEG WITH HOT TO TOUCH AND VASCULITIS MD AWARE ,WORKING ON TRANSFERRING THE PT TO [facility].
[2021-08-29] MEDS ORDERED: levetiracetam inj 1,000 MG in normal saline 100ml IV soln 90 ML IV SCH (20:00)
[2021-08-29] MEDS ORDERED: DILT180C66 PO (21:20)
--- NOTE | 2021-08-29 21:41 | NUR ---
DANIAL FOY. CALL WITH ANY UPDATES REGUARDING TRANSFER.
[2021-08-29 21:53] LABS: CLARITY,URINE SLIGHTLY CLOUDY (Clear); COLOR,URINE YELLOW (Yellow); PROTEIN,URINE TRACE mg/dl (Neg); UA COLLECTION TYPE NON-SPECIFIED
[2021-08-29 21:54] LABS: KETONES,URINE 15 mg/dl (Neg); LEUKOCYTE ESTERASE ,URINE NEGATIVE (Neg); NITRITES, URINE NEGATIVE (Neg); OCCULT BLOOD,URINE LARGE (Neg); UROBILINOGEN,URINE 0.2 E.U/dL (0.2-1.0)
[2021-08-29 21:55] LABS: GLUCOSE, URINE >=1000 mg/dl (Neg)
[2021-08-29 22:00] LABS: BACTERIA,URINE FEW /HPF (Neg); MUCUS STRANDS NONE SEEN /LPF (Neg); SQUAMOUS EPITHELIAL CELL,UR FEW /LPF (FEW); YEAST FEW /HPF (NEGATIVE)
[2021-09-03 18:21] LABS: ATYPICAL PANCA <1:20 titer (Neg:<1:20); CYTOPLASMIC (C-ANCA) <1:20 titer (Neg:<1:20); PERINUCLEAR (P-ANCA) <1:20 titer (Neg:<1:20)
== END 2021-08-30 02:12 | disposition admitted as inpatient to this hospital (09) ==
LOC: ER 14:19
DX: R56.9 Unspecified convulsions (principal); Z20.822 Contact with and (suspected) exposure to COVID-19; I67.7 Cerebral arteritis, not elsewhere classified; E11.9 Type 2 diabetes mellitus without complications; E78.00 Pure hypercholesterolemia, unspecified; I10 Essential (primary) hypertension; G89.29 Other chronic pain; E05.90 Thyrotoxicosis, unspecified without thyrotoxic crisis or storm; Z72.89 Other problems related to lifestyle; Z79.899 Other long term (current) drug therapy; Z88.8 Allergy status to other drugs, medicaments and biological substances
CPT/HCPCS: 36415; 70450; 71045; 80053; 81001; 82550; 82553; 83605; 83735; 83874; 84145; 84484; 85025; 85379; 85384; 85610; 85651; 85730; 86038; 86140; 86256; 87040; 87088; 87635; 93005; 96365; 96366; 99291; 99292; C9803; J1953